=== PATIENT | female | born 1970 | race Hispanic/Latino ===

== ENCOUNTER 2023-12-14 21:36 | Emergency (ER) | payer SELFPAY ==
[2023-12-14] MEDS ORDERED: KETOROLAC 30 MG/ML INJ ONE (21:52)
[2023-12-14] MEDS ORDERED: NA CHLORIDE 0.9% 1,000 ML ONE (21:52)
[2023-12-14] MEDS ORDERED: FAMOTIDINE 20 MG/2 ML VIAL IV ONE (21:52)
[2023-12-14] MEDS ORDERED: ONDANSETRON 4 MG/2 ML VIAL ONE (21:53)
[2023-12-14 21:59] LABS: Absolute Basophils 0.2 K/uL (0-0.5); Absolute Eosinophils 0.1 K/uL (0-0.5); Absolute Lymphocytes (CBC) 2.8 K/uL (0.7-4.9); Absolute Monocytes 0.7 K/uL (0.1-1.3); Absolute Neutrophil 10.3 K/uL (1.8-8.0); Basophils % 1.4 % (0-1.3); Hematocrit 44.8 % (36.0-45.0); Hemoglobin 15.2 g/dL (12.0-15.0); Lymphocytes % 19.7 % (15.3-44.8); MCH 30.9 pg (27.0-35.0); MCV 90.9 fL (80-100); MPV 7.7 fL (7.6-11.3); Monocytes % 5.3 % (3.3-12.3); Neutrophils % 72.6 % (41.7-73.7); Platelets 481 thou/uL (152-406); RBC Red Blood Cell Count 4.93 M/uL (3.86-4.86)
[2023-12-14] MEDS ORDERED: MAGNES/ALUMIN/SIMET 30ML UCUP ONE (22:06)
[2023-12-14] MEDS ORDERED: LIDOCAINE VISCOUS 2% 10ML ORAL SOLN ONE (22:07)
[2023-12-14 22:23] LABS: Anion Gap 10.8 mEq/L (5.0-15.0); Bilirubin Total 0.5 mg/dL (0.2-1.0); Globulin 4.2 g/dL (2.3-3.5); Potassium 3.8 mEq/L (3.5-5.1); Protein, Total 8.2 g/dL (6.4-8.2); Troponin High Sensitivity 4.5 pg/mL (<58.9)
--- NOTE | 2023-12-14 22:43 | RAD REPORT ---
EXAM DESCRIPTION: US - Abdomen Exam Limited - 12/14/2023 10:25 pm CLINICAL HISTORY: ABD PAIN COMPARISON: No comparisons TECHNIQUE: Sonographic grayscale and color flow images of the right upper abdominal quadrant were o btained. FINDINGS: The gallbladder demonstrates no gallstones. No pericholecystic fluid or gallbladder wall t hickening. The common bile duct is normal measuring 1 mm. The liver demonstrates no findings of intrahepatic biliary dilatation. IMPRESSION: Unremarkable examination.
--- NOTE | 2023-12-14 22:50 | EDPHYS ---
Physician Documentation [facility] Name: Antonia Guillen Age: 53 yrs Sex: Female : 1970 Arrival Date: 12/14/2023 Time: 21:36 Bed 6 Private MD: ED Physician Shahzad Ballard HPI: 12/13 21:50 This 53 yrs old Female presents to ER via Ambulatory with complaints of Abdominal Pain, kb Nausea/Vomiting/Diarrhea. 21:50 Pt is a 53 year old female who presents for epigastric pain, nausea and vomiting that kb started yesterday. Denies fever, diarrhea. Historical: - Allergies: 21:46 No Known Allergies; rv - Home Meds: 21:46 Ranitidine Oral [Active]; rv - PMHx: 21:46 gastritis; rv - PSHx: 21:46 None; rv - Immunization history:: Adult Immunizations up to date. - Infectious Disease History:: Denies. - Social history:: Smoking status: Patient denies any tobacco usage or history of. ROS: 21:49 Constitutional: As per HPI kb Exam: 21:49 Constitutional: This is a well developed, well nourished patient who is awake, alert, kb and in no acute distress. Head/Face: Normocephalic, atraumatic. ENT: Moist Mucous membranes Cardiovascular: Regular rate Respiratory: Respirations even and unlabored. No increased work of breathing. Talking in full sentences Skin: Warm, dry with normal turgor. Normal color. MS/ Extremity: Pulses equal, no cyanosis. Neurovascular intact. Full, normal range of motion. Neuro: Awake and alert, GCS 15, oriented to person, place, time, and situation. Moves all extremities. Normal gait. 21:49 Abdomen/GI: Inspection: abdomen appears normal, Bowel sounds: normal, Palpation: soft, in all quadrants, moderate abdominal tenderness, in the epigastric area, 22:17 ECG was reviewed by the Attending Physician. kb Vital Signs: 21:45 BP 156 / 92; Pulse 91; Resp 18; Temp 98; Pulse Ox 99% ; rv 22:46 BP 147 / 84; Pulse 93; Pulse Ox 100% on R/A; Pain 0/10; tm6 22:59 BP 144 / 92; Pulse 82; Resp 20; Temp 97.2; Pulse Ox 100% on R/A; Pain 0/10; tm6 22:46 Pain Scale: Adult tm6 22:59 Pain Scale: Adult tm6 MDM: 21:45 Patient medically screened. kb 21:49 Data reviewed: vital signs, nurses notes. kb 22:48 Differential diagnosis: cholecystitis, Cholelithiasis, gastritis, gastroesophageal kb reflux disease, non-specific abd pain, Peptic Ulcer Disease. Counseling: I had a detailed discussion with the patient and/or guardian regarding the historical points, exam findings, and any diagnostic results supporting the discharge/admit diagnosis, lab results, radiology results, the need for outpatient follow up, a family practitioner, to return to the emergency department if symptoms worsen or persist or if there are any questions or concerns that arise at home. 12/13 21:49 Order name: CBC with Diff; Complete Time: 22:07 kb 12/13 21:49 Order name: CMP; Complete Time: 22:25 kb 12/13 21:49 Order name: Lipase; Complete Time: 22:25 kb 12/13 21:49 Order name: Troponin High Sensitivity; Complete Time: 22:25 kb 24 22:07 Order name: US Abdomen Limited; Complete Time: 22:44 kb 12/13 21:49 Order name: EKG; Complete Time: 21:49 kb 12/13 21:49 Order name: IV Saline Lock; Complete Time: 22:00 kb 12/13 21:49 Order name: Labs collected and sent; Complete Time: 22:00 kb 12/13 21:49 Order name: EKG - Nurse/Tech; Complete Time: 22:03 kb EC:17 Rate is 80 beats/min. Rhythm is regular. QRS [place] is Normal. ND interval is normal at kb 130 msec. QRS interval is normal at 78 msec. QT interval is normal at 438 msec. Administered Medications: 22:01 Drug: NS 0.9% IV 1000 ml IV at 1 bolus Per protocol; 1000 mL bolus Route: IV; Rate: 1 tm6 bolus; Site: right antecubital; 22: Drug: Famotidine IVP 20 mg IVP once; dilute with 10 mL 0.9% NaCl; give over 2 minutes tm6 Route: IVP; Site: right antecubital; 22:01 Drug: TORadol - Ketorolac IVP 15 mg IVP once Route: IVP; Site: right antecubital; tm6 22:01 Drug: Ondansetron IVP 4 mg IVP once; over 2 minutes Route: IVP; Site: right antecubital;tm6 22:11 Drug: GI Cocktail without - (Maalox PO 30 ml, Lidocaine Mucous Membrane 2 % 15 tm6 ml) PO once Route: PO; 23:01 Follow up: Response: Marked relief of symptoms tm6 22:59 Drug: Dicyclomine PO 20 mg PO once Route: PO; tm6 Disposition Summary: 12/14/23 22:49 Discharge Ordered Notes: Location: Home kb Condition: Stable kb Diagnosis - Epigastric pain kb Followup: kb - With: Emergency Department - When: As needed - Reason: Worsening of condition Followup: kb - With: Private Physician - When: 2 - 3 days - Reason: Recheck today's complaints, Continuance of care, Re-evaluation by your physician Discharge Instructions: - Discharge Summary Sheet kb - Abdominal Pain, Adult, [id number] kb Forms: - Medication Reconciliation Form kb - Antibiotic Education kb - Prescription Opioid Use kb - Patient Portal Instructions kb - Leadership Thank You Letter kb Prescriptions: - Zofran 4 mg Oral tablet - take 1 tablet ORAL route every 6 hours As needed; 12 tablet; Refills: 0, kb Product Selection Permitted - dicyclomine 20 mg Oral tablet - take 1 tablet ORAL route 4 times per day As needed; 20 tablet; Refills: 0, kb Product Selection Permitted Signatures: Dispatcher [employer] Uma Ta, SHANIA LOMELI-Angel Weiner RN RN Idris Longoria RN RN tm6 Corrections: (The following items were deleted from the chart) 21:47 21:46 Home Meds: None; rv rv
--- NOTE | 2023-12-14 22:50 | ER ---
Nurse's Notes [facility] Name: Antonia Guillen Age: 53 yrs Sex: Female : 1970 Arrival Date: 12/14/2023 Time: 21:36 Bed 6 Private MD: Diagnosis: Epigastric pain Presentation: 12/13 21:45 Chief complaint: Patient states: epigastric pain, nausea and vomiting for two days. rv denies fever. takes Ranitidine for Gastritis. no other complaints. Coronavirus screen: At this time, the client does not indicate any symptoms associated with coronavirus-19. Ebola Screen: No symptoms or risks identified at this time. Initial Sepsis Screen: Does the patient meet any 2 criteria? No. Patient's initial sepsis screen is negative. Does the patient have a suspected source of infection? No. Patient's initial sepsis screen is negative. Risk Assessment: Do you want to hurt yourself or someone else? Patient reports no desire to harm self or others. Onset of symptoms was December 14, 2023. 21:45 Method Of Arrival: Ambulatory rv 21:45 Acuity: LINO 3 rv Triage Assessment: 21:46 General: Appears uncomfortable, Behavior is calm, cooperative. Pain: Complains of pain rv in abdomen. Neuro: Level of Consciousness is awake, alert, obeys commands, Oriented to person, place, time, situation. Cardiovascular: Capillary refill < 3 seconds Patient's skin is warm and dry. Respiratory: Airway is patent Respiratory effort is even, unlabored. GI: Abdomen is round non-distended. : No signs and/or symptoms were reported regarding the genitourinary system. Derm: Skin is intact. Historical: - Allergies: 21:46 No Known Allergies; rv - Home Meds: 21:46 Ranitidine Oral [Active]; rv - PMHx: 21:46 gastritis; rv - PSHx: 21:46 None; rv - Immunization history:: Adult Immunizations up to date. - Infectious Disease History:: Denies. - Social history:: Smoking status: Patient denies any tobacco usage or history of. Screenin:48 [facility] ED Fall Risk Assessment (Adult) History of falling in the last 3 months, rv including since admission No falls in past 3 months (0 pts) Score/Fall Risk Level 0 - 2 = Low Risk Oriented to surroundings, Maintained a safe environment, Educated pt \T\ family on fall prevention, incl call for assistance when getting out of bed, Assessed \T\ reinforced patient's understanding of fall precautions. Abuse screen: Denies threats or abuse. Denies injuries from another. Nutritional screening: No deficits noted. Tuberculosis screening: No symptoms or risk factors identified. Assessment: 22:11 General: Appears distressed, uncomfortable, Behavior is calm, cooperative. Pain: tm6 Complains of pain in epigastric area Pain does not radiate. Pain currently is 10 out of 10 on a pain scale. Also complains of nausea. Neuro: Level of Consciousness is awake, alert, obeys commands, Oriented to person, place, time, situation. Cardiovascular: Patient's skin is warm and dry. Respiratory: Airway is patent Respiratory effort is even, unlabored, Respiratory pattern is regular, symmetrical. GI: Bowel sounds present X 4 quads. Abd is soft Abdomen is tender to palpation in epigastric area Reports upper abdominal pain, diarrhea, nausea, Pain is 10 out of 10 on a pain scale. vomiting. GI: Abdomen is flat, non-distended. : No signs and/or symptoms were reported regarding the genitourinary system. EENT: No signs and/or symptoms were reported regarding the EENT system. Derm: No signs and/or symptoms reported regarding the dermatologic system. Musculoskeletal: No signs and/or symptoms reported regarding the musculoskeletal system. 22:46 Reassessment: Patient and/or family updated on plan of care and expected duration. Pain tm6 level reassessed. Patient is alert, oriented x 3, equal unlabored respirations, skin warm/dry/pink. Patient states feeling better. Patient states symptoms have improved. 23:00 Reassessment: Patient appears in no apparent distress at this time. Patient and/or tm6 family updated on plan of care and expected duration. Pain level reassessed. Patient is alert, oriented x 3, equal unlabored respirations, skin warm/dry/pink. Patient states feeling better. Vital Signs: 21:45 BP 156 / 92; Pulse 91; Resp 18; Temp 98; Pulse Ox 99% ; rv 22:46 BP 147 / 84; Pulse 93; Pulse Ox 100% on R/A; Pain 0/10; tm6 22:59 BP 144 / 92; Pulse 82; Resp 20; Temp 97.2; Pulse Ox 100% on R/A; Pain 0/10; tm6 22:46 Pain Scale: Adult tm6 22:59 Pain Scale: Adult tm6 ED Course: 21:40 Patient arrived in ED. jj6 21:45 [facility] Lucero [facility]C [facility] kb 21:45 Shahzad Ballard MD is Attending Physician. kb 21:46 Triage completed. rv 21:46 Arm band placed on right wrist. rv 21:48 Patient has correct armband on for positive identification. Client placed on continuous rv cardiac and pulse oximetry monitoring. NIBP monitoring applied. 21:48 No provider procedures requiring assistance completed. rv 21:49 Idris Chun, RN is Primary Nurse. tm6 22:00 Troponin High Sensitivity Sent. as6 22:00 CBC with Diff Sent. as6 22:00 CMP Sent. as6 22:00 Lipase Sent. as6 22:00 Inserted saline lock: 20 gauge in right antecubital area, using aseptic technique. as6 Blood collected. 22:11 Provided Education on: use of call de la garza. classroom monitor on. Pulse ox on. NIBP on. Door tm6 closed. Noise minimized. Lights dimmed. Warm blanket given. 22:11 EKG done, by ED staff, reviewed by Uma JAUREGUI. tm6 22:27 US Abdomen Limited In Process Unspecified. EDMS 23:00 IV discontinued, intact, bleeding controlled, No redness/swelling at site. Pressure tm6 dressing applied. Administered Medications: 22:01 Drug: NS 0.9% IV 1000 ml IV at 1 bolus Per protocol; 1000 mL bolus Route: IV; Rate: 1 tm6 bolus; Site: right antecubital; 22:01 Drug: Famotidine IVP 20 mg IVP once; dilute with 10 mL 0.9% NaCl; give over 2 minutes tm6 Route: IVP; Site: right antecubital; 22:01 Drug: TORadol - Ketorolac IVP 15 mg IVP once Route: IVP; Site: right antecubital; tm6 22:01 Drug: Ondansetron IVP 4 mg IVP once; over 2 minutes Route: IVP; Site: right antecubital;tm6 22:11 Drug: GI Cocktail without - (Maalox PO 30 ml, Lidocaine Mucous Membrane 2 % 15 tm6 ml) PO once Route: PO; 23:01 Follow up: Response: Marked relief of symptoms tm6 22:59 Drug: Dicyclomine PO 20 mg PO once Route: PO; tm6 Medication: 21:48 VIS not applicable for this client. rv Outcome: 22:49 Discharge ordered by . reynaldo 23:00 Discharged to home ambulatory, with family, tm6 23:00 Condition: stable 23:00 Discharge instructions given to patient, family, Instructed on discharge instructions, follow up and referral plans. medication usage, Demonstrated understanding of instructions, follow-up care, medications, Prescriptions given X 2, 23:00 Patient left the ED. tm6 Signatures: Dispatcher [employer] EDMS Uma Lucero, INSTRUCTIONAL TECHNOLOGIST-C INSTRUCTIONAL TECHNOLOGIST-Angel Weiner, RN RN rv Laura Riley Ashby, RN RN as6 Idris Chun RN RN tm6 Corrections: (The following items were deleted from the chart) 21:47 21:46 Home Meds: None; rv rv
[2023-12-14] MEDS ORDERED: DICYCLOMINE HCL 10 MG CAP ONE (22:54)
[2023-12-14 23:11] VITALS: BP 144/92; TEMP 97.2; O2SAT 100
== END 2023-12-14 23:00 | disposition home or self-care (01) ==
LOC: ER 21:36
DX: R10.13 Epigastric pain (principal)
CPT/HCPCS: 36415; 76705; 80053; 83690; 84484; 85025; 93005; J2405; J7030

== ENCOUNTER 2023-12-17 00:01 | Emergency (ER) | payer OTHER, SELFPAY ==
[2023-12-17 00:34] LABS: Absolute Basophils 0.2 K/uL (0-0.5); Absolute Eosinophils 0.2 K/uL (0-0.5); Absolute Lymphocytes (CBC) 2.6 K/uL (0.7-4.9); Absolute Monocytes 0.7 K/uL (0.1-1.3); Absolute Neutrophil 9.2 K/uL (1.8-8.0); Basophils % 1.3 % (0-1.3); Eosinophils % 1.7 % (0-4.4); Hematocrit 39.7 % (36.0-45.0); Hemoglobin 13.4 g/dL (12.0-15.0); Lymphocytes % 19.9 % (15.3-44.8); MCH 30.6 pg (27.0-35.0); MCHC 33.8 g/dL (32.0-36.0); MCV 90.7 fL (80-100); MPV 7.1 fL (7.6-11.3); Monocytes % 5.4 % (3.3-12.3); Neutrophils % 71.7 % (41.7-73.7); Nucleated Red Blood Cells % 0.1 % (0-0); Platelets 419 thou/uL (152-406); RBC Red Blood Cell Count 4.38 M/uL (3.86-4.86); Red Cell Distribution Width 13.7 % (12.1-15.2)
[2023-12-17 00:54] LABS: Albumin 3.6 g/dL (3.4-5.0); Anion Gap 10.7 mEq/L (5.0-15.0); Bilirubin Total 0.4 mg/dL (0.2-1.0); Globulin 3.6 g/dL (2.3-3.5); Potassium 3.7 mEq/L (3.5-5.1); Protein, Total 7.2 g/dL (6.4-8.2); Troponin High Sensitivity 4.8 pg/mL (<58.9)
[2023-12-17] MEDS ORDERED: NA CHLORIDE 0.9% 1,000 ML ONE (01:15)
[2023-12-17] MEDS ORDERED: ONDANSETRON 4 MG/2 ML VIAL ONE (01:15)
[2023-12-17] MEDS ORDERED: FAMOTIDINE 20 MG/2 ML VIAL IV ONE (01:15)
[2023-12-17] MEDS ORDERED: MORPHINE 4 MG/ML SYR ONE (01:15)
[2023-12-17 03:10] LABS: Specific Gravity 1.022 (1.005-1.030); Urine Bacteria <20 /HPF (<20); Urine Bilirubin NEGATIVE (Negative); Urine Blood 2+ (Negative); Urine Clarity Turbid (Clear); Urine Color Colorless (Yellow); Urine Culture Reflex Order NOT NEEDED; Urine Glucose NEGATIVE (Negative); Urine Ketones NEGATIVE (Negative); Urine Microscopic Reflex YN ORDER UMIC; Urine Nitrite NEGATIVE (Negative); Urine Protein NEGATIVE (Negative); Urine RBC <5 /HPF (None Seen); Urine Urobilinogen Normal (Normal); Urine WBC <5 /HPF (<5)
[2023-12-17 03:12] LABS: Specific Gravity 1.022 (1.005-1.030)
--- NOTE | 2023-12-17 03:12 | ER ---
Nurse's Notes [facility] Name: Antonia Guillen Age: 53 yrs Sex: Female : 1970 Arrival Date: 12/17/2023 Time: 00:01 Bed 5 Private MD: Diagnosis: Epigastric pain;Nausea Presentation: 12/16 00:12 Chief complaint: Patient states: Epigastric abdominal pain onset 1 week ago. Pt states cm10 that her pain got worse tonight. Pt also reports 4 episodes of vomiting. Pt was seen here a few days ago for the same issues. Coronavirus screen: Client indicates they have traveled out of the [place] in the last 14 days. At this time, the client does not indicate any symptoms associated with coronavirus-19. Ebola Screen: Patient denies travel to an Ebola-affected area in the 21 days before illness onset. No symptoms or risks identified at this time. Initial Sepsis Screen: Does the patient meet any 2 criteria? No. Patient's initial sepsis screen is negative. Does the patient have a suspected source of infection? No. Patient's initial sepsis screen is negative. Risk Assessment: Do you want to hurt yourself or someone else? Patient reports no desire to harm self or others. Onset of symptoms was December 17, 2023. 00:12 Method Of Arrival: Ambulatory cm10 00:12 Acuity: LINO 3 cm10 Triage Assessment: 00:14 General: Appears uncomfortable, Behavior is cooperative. Pain: Complains of pain in cm10 epigastric area Pain does not radiate. Pain currently is 10 out of 10 on a pain scale. Neuro: No deficits noted. Level of Consciousness is awake, alert, obeys commands, Oriented to person, place, time, situation. Respiratory: No deficits noted. Airway is patent Respiratory effort is even, unlabored, Respiratory pattern is regular, symmetrical. GI: Reports upper abdominal pain, nausea, vomiting. Derm: No deficits noted. Skin is intact, Skin is pink, warm \T\ dry. Musculoskeletal: No deficits noted. Range of motion: intact in all extremities. Historical: - Allergies: 00:13 No Known Allergies; cm10 - PMHx: 00:13 gastritis; Hypertensive disorder; cm10 - Immunization history:: Adult Immunizations up to date. - Infectious Disease History:: Denies. - Social history:: Smoking status: Patient reports the use of cigarette tobacco products, smokes one-half pack cigarettes per day. Screenin:36 [facility] ED Fall Risk Assessment (Adult) History of falling in the last 3 months, jb4 including since admission No falls in past 3 months (0 pts) Confusion or Disorientation No (0 pts) Intoxicated or Sedated No (0 pts) Impaired Gait No (0 pts) Mobility Assist Device Used No (0 pt) Altered Elimination No (0 pt) Score/Fall Risk Level 0 - 2 = Low Risk Oriented to surroundings, Maintained a safe environment. Abuse screen: Denies threats or abuse. Nutritional screening: No deficits noted. Tuberculosis screening: No symptoms or risk factors identified. Assessment: 01:35 General: Appears in no apparent distress. uncomfortable, Behavior is calm, cooperative, jb4 appropriate for age. Pain: Complains of pain in epigastric area Pain does not radiate. Pain currently is 7 out of 10 on a pain scale. Neuro: Level of Consciousness is awake, alert, obeys commands, Oriented to person, place, time, situation. Cardiovascular: Patient's skin is warm and dry. Respiratory: Airway is patent Respiratory effort is even, unlabored, Respiratory pattern is regular, symmetrical. GI: Abdomen is flat, non-distended, Reports nausea. : No signs and/or symptoms were reported regarding the genitourinary system. EENT: No signs and/or symptoms were reported regarding the EENT system. Derm: Skin is intact, Skin is pink, warm \T\ dry. Musculoskeletal: Circulation, motion, and sensation intact. Range of motion: intact in all extremities. 03:18 GI: Bowel sounds present X 4 quads. Abd is soft and non tender X 4 quads. rv Vital Signs: 00:12 BP 157 / 89; Pulse 82; Resp 18; Temp 99(O); Pulse Ox 98% on R/A; Weight 49.9 kg (R); cm10 Pain 1010; 00:35 BP 155 / 88 LA Supine (auto/lg); Pulse 75 MON; Resp 15 S; Temp 98.8(O); Pulse Ox 100% ty on R/A; Weight 61.23 kg (M); Height 5 ft. 4 in. (R); Pain 710; 01:00 BP 167 / 87; Pulse 73; Resp 16; Pulse Ox 99% on R/A; jb4 03:17 BP 153 / 66; Pulse 68; Resp 17; Temp 98; Pulse Ox 99% on R/A; rv 00:35 Body Mass Index 23.17 (61.23 kg, 162.56 cm) ty 00:12 Pain Scale: Adult cm10 00:35 Pain Scale: Adult ty ED Course: 12/15 23:00 Initial lab(s) drawn, by me, sent to lab. Inserted saline lock: 20 gauge in right rv antecubital area, using aseptic technique. Blood collected. 12/16 00:05 Patient arrived in ED. gm2 00:07 Shahzad Ballard MD is Attending Physician. tiffanie 00:10 Shahzad Johnson PA is PHCP. cp 00:13 Triage completed. cm10 00:14 Radiology exam delayed due to IV insertion attempt and/or patient not having eh4 appropriate IV at this time. 00:15 Arm band placed on Patient placed in an exam room, on a stretcher. cm10 00:16 Angel Means, PHAN is Primary Nurse. rv 01:36 Patient has correct armband on for positive identification. Bed in low position. Call jb4 light in reach. Side rails up X 1. Provided Education on: plan of care.. 01:53 CT Abd/Pelvis - IV Contrast Only In Process Unspecified. EDMS 03:11 Lenin Evans MD is Referral Physician. cp 03:18 No provider procedures requiring assistance completed. IV discontinued, intact, rv bleeding controlled, No redness/swelling at site. Pressure dressing applied. Administered Medications: 01:33 Drug: NS 0.9% IV 1000 ml IV at 1 bolus Per protocol; 1000 mL bolus Route: IV; Rate: 1 jb4 bolus; Site: right antecubital; 03:19 Follow up: IV Status: Completed infusion; IV Intake: 1000ml rv 01:33 Drug: Famotidine IVP 20 mg IVP once; dilute with 10 mL 0.9% NaCl; give over 2 minutes jb4 Route: IVP; Site: right antecubital; 03:19 Follow up: Response: No adverse reaction; Marked relief of symptoms rv 01:33 Drug: Ondansetron IVP 4 mg IVP once; over 2 minutes Route: IVP; Site: right antecubital;jb4 03:19 Follow up: Response: No adverse reaction; Marked relief of symptoms rv 01:33 Drug: morphine IVP or IV 4 mg IVP once over 4 mins Route: IVP; Infused Over: 4 mins; jb4 Site: right antecubital; 03:19 Follow up: Response: No adverse reaction; Marked relief of symptoms rv 03:17 Not Given (Patient Refused): GI Cocktail without - (maaloxsuspension 30 ml, rv lidocaine mucous membrane liquid 2 % 15 ml) PO once Medication: 03:18 VIS not applicable for this client. rv Intake: 03:19 IV: 1000ml; Total: 1000ml. rv Outcome: 03:12 Discharge ordered by MD. cp 03:18 Discharged to home ambulatory, with family, rv 03:18 Condition: improved 03:18 Discharge instructions given to patient, Instructed on discharge instructions, follow up and referral plans. medication usage, Demonstrated understanding of instructions, follow-up care, medications, Prescriptions given X 2, 03:19 Patient left the ED. rv Signatures: Dispatcher [employer] EDMS Shahzad Ballard MD MD cha Page, Corey, PA PA Trevor Lopez, RN RN jb4 Angel Means RN RN rv Pratibha Gamboa Dipti Goel RN RN cm10 Magdalene Tavarez 2 Al Vides
--- NOTE | 2023-12-17 03:12 | EDPHYS ---
Physician Documentation [facility] Name: Antonia Guillen Age: 53 yrs Sex: Female : 1970 Arrival Date: 12/17/2023 Time: 00:01 Bed 5 Private MD: ED Physician Shahzad Ballard HPI: 12/16 00:23 This 53 yrs old Female presents to ER via Ambulatory with complaints of cp Abdominal Pain, Nausea. 00:23 The patient presents with abdominal pain in the epigastric area. cp 00:23 Onset: The symptoms/episode began/occurred last night. Associated signs and symptoms: cp Pertinent positives: chest pain, nausea, Pertinent negatives: constipation, diarrhea, fever, vomiting. The symptoms are described as constant. Severity of pain: in the emergency department the pain is unchanged despite home interventions. Historical: - Allergies: 00:13 No Known Allergies; cm10 - PMHx: 00:13 gastritis; Hypertensive disorder; cm10 - Immunization history:: Adult Immunizations up to date. - Infectious Disease History:: Denies. - Social history:: Smoking status: Patient reports the use of cigarette tobacco products, smokes one-half pack cigarettes per day. ROS: 00:25 Constitutional: Negative for body aches, chills, fever, poor PO intake, cp 00:25 Eyes: Negative for injury, pain, redness, and discharge, cp 00:25 ENT: Negative for drainage from ear(s), ear pain, sore throat, difficulty swallowing, difficulty handling secretions, 00:25 Cardiovascular: Negative for chest pain, edema, palpitations, 00:25 Respiratory: Negative for cough, shortness of breath, wheezing, 00:25 Abdomen/GI: Positive for abdominal pain, nausea, Negative for vomiting, diarrhea, constipation, 00:25 Back: Negative for radiated pain, 00:25 Neuro: Negative for altered mental status, dizziness, headache, syncope, weakness, 00:25 All other systems are negative, Exam: 00:30 Constitutional: The patient appears in no acute distress, alert, awake, cp non-diaphoretic, non-toxic, well developed, well nourished, uncomfortable, 00:30 Head/Face: Normocephalic, atraumatic. cp 00:30 Eyes: Periorbital structures: appear normal, Conjunctiva: normal, no exudate, no injection, Sclera: no appreciated abnormality, Lids and lashes: appear normal, bilaterally, 00:30 ENT: External ear(s): are unremarkable, Nose: is normal, Mouth: Lips: moist, Oral mucosa: pink and intact, moist, Posterior pharynx: Airway: no evidence of obstruction, patent, 00:30 Neck: ROM/movement: is normal, is supple, without pain, no range of motions limitations, 00:30 Chest/axilla: Inspection: normal, 00:30 Cardiovascular: Rate: normal, Rhythm: regular, Edema: is not appreciated, JVD: is not appreciated, 00:30 Respiratory: the patient does not display signs of respiratory distress, Respirations: normal, no use of accessory muscles, no retractions, labored breathing, is not present, Breath sounds: are clear throughout, no decreased breath sounds, no stridor, no wheezing, 00:30 Abdomen/GI: Inspection: abdomen appears normal, Bowel sounds: active, all quadrants, Palpation: soft, in all quadrants, moderate abdominal tenderness, in the epigastric area, rebound tenderness, is not appreciated, involuntary guarding, is not appreciated, 00:30 Back: CVA tenderness, is absent, 00:33 ECG was reviewed by the Attending Physician. cp Vital Signs: 00:12 BP 157 / 89; Pulse 82; Resp 18; Temp 99(O); Pulse Ox 98% on R/A; Weight 49.9 kg (R); cm10 Pain 10/10; 00:35 BP 155 / 88 LA Supine (auto/lg); Pulse 75 MON; Resp 15 S; Temp 98.8(O); Pulse Ox 100% ty on R/A; Weight 61.23 kg (M); Height 5 ft. 4 in. (R); Pain 7/10; 01:00 BP 167 / 87; Pulse 73; Resp 16; Pulse Ox 99% on R/A; jb4 03:17 BP 153 / 66; Pulse 68; Resp 17; Temp 98; Pulse Ox 99% on R/A; rv 00:35 Body Mass Index 23.17 (61.23 kg, 162.56 cm) ty 00:12 Pain Scale: Adult cm10 00:35 Pain Scale: Adult ty MDM: 00:07 Patient medically screened. [email or web address] 01:00 Differential diagnosis: appendicitis, cholecystitis, Cholelithiasis, gastritis, GI cp Bleed, pancreatitis, Pyelonephritis, Ureterolithiasis, urinary tract infection. 03:11 Data reviewed: vital signs, nurses notes, lab test result(s), radiologic studies, CT cp scan. 03:11 I considered the following discharge prescriptions or medication management in the emergency department Medications were administered in the Emergency Department. See MAR. Care significantly affected by the following chronic conditions: Hypertension. Counseling: I had a detailed discussion with the patient and/or guardian regarding the historical points, exam findings, and any diagnostic results supporting the discharge/admit diagnosis, lab results, radiology results, to return to the emergency department if symptoms worsen or persist or if there are any questions or concerns that arise at home. Response to treatment: the patient's symptoms have resolved after treatment, the patient's pain is gone, and as a result, I will discharge patient. Special discussion: Based on the patient's Hx, exam, and Dx evaluation, there is no indication for emergent surgery or inpatient Tx. It is understood by the patient/guardian that if the Sx's persist or worsen they need to return immediately for re-evaluation. 12/16 00:07 Order name: CBC with Diff; Complete Time: 01:54 [facility] 12/16 01:54 Interpretation: Normal except: WBC 12.80; PLT 419; MPV 7.1; NEUT A 9.2. 12/16 00:07 Order name: CMP; Complete Time: 01:54 [facility] 12/16 01:54 Interpretation: Normal except: GLUC 118; GFR 87; AST 11; GLOB 3.6; A/G 1.0. 12/16 00:07 Order name: Lipase; Complete Time: 01:54 [facility] 12/16 00:07 Order name: Test, Urine; Complete Time: 03:13 [facility] 12/16 00:07 Order name: Urinalysis w/ reflexes; Complete Time: 03:13 [facility] 12/16 03:13 Interpretation: Normal except: [facility] Turbid; UBLD 2+. 12/16 00:32 Order name: Troponin High Sensitivity; Complete Time: 01:54 EDMS 12/16 01:54 Interpretation: Reviewed. 12/16 00:07 Order name: CT Abd/Pelvis - IV Contrast Only [facility] 12/16 00:10 Order name: EKG; Complete Time: 00:11 [facility] 12/16 00:07 Order name: IV Saline Lock; Complete Time: :12 [facility] 12/16 00:07 Order name: Labs collected and sent; Complete Time: : [facility] 12/16 00:10 Order name: EKG - Nurse/Tech; Complete Time: : [facility] 12/16 02:53 Order name: PO challenge; Complete Time: 02:57 cp EC:33 Rate is 76 beats/min. Rhythm is regular. MO interval is normal. QRS interval is normal. cp QT interval is normal. T waves are Inverted in lead aVR. Interpreted by me. Reviewed by me. Administered Medications: 01:33 Drug: NS 0.9% IV 1000 ml IV at 1 bolus Per protocol; 1000 mL bolus Route: IV; Rate: 1 jb4 bolus; Site: right antecubital; 03:19 Follow up: IV Status: Completed infusion; IV Intake: 1000ml rv 01:33 Drug: Famotidine IVP 20 mg IVP once; dilute with 10 mL 0.9% NaCl; give over 2 minutes jb4 Route: IVP; Site: right antecubital; 03:19 Follow up: Response: No adverse reaction; Marked relief of symptoms rv 01:33 Drug: Ondansetron IVP 4 mg IVP once; over 2 minutes Route: IVP; Site: right antecubital;jb4 03:19 Follow up: Response: No adverse reaction; Marked relief of symptoms rv 01:33 Drug: morphine IVP or IV 4 mg IVP once over 4 mins Route: IVP; Infused Over: 4 mins; jb4 Site: right antecubital; 03:19 Follow up: Response: No adverse reaction; Marked relief of symptoms rv 03:17 Not Given (Patient Refused): GI Cocktail without - (maaloxsuspension 30 ml, rv lidocaine mucous membrane liquid 2 % 15 ml) PO once Disposition Summary: 12/17/23 03:12 Discharge Ordered Notes: Location: Home cp Problem: new cp Symptoms: have improved cp Condition: Stable cp Diagnosis - Epigastric pain cp - Nausea cp Followup: cp - With: Lenin Evans MD - When: 2 - 3 days - Reason: Recheck today's complaints Discharge Instructions: - Discharge Summary Sheet cp - Abdominal Pain, Adult cp - Nausea, Adult cp Forms: - Medication Reconciliation Form cp - Antibiotic Education cp - Prescription Opioid Use cp - Patient Portal Instructions cp - Leadership Thank You Letter cp Prescriptions: - Protonix 40 mg Oral Tablet - take 1 tablet ORAL route once daily; 30 tablet; Refills: 0, Product Selection cp Permitted - Zofran 4 mg Oral Tablet - take 1 tablet ORAL route every 12 hours As needed; 20 tablet; Refills: 0, cp Product Selection Permitted Addendum: 12/20/2023 22:00 Co-signature as Attending Physician, Shahzad Ballard MD I agree with the assessment and c ovalles plan of care. Signatures: Dispatcher [employer] EDMS Shahzad Ballard MD MD cha Page, Corey, PA PA cp Trevor Jaimes, RN RN jb4 Dipti Jimenez RN RN cm10 Angel Means RN rv Corrections: (The following items were deleted from the chart) 12/16 00:08 00:08 Abdomen Pelvis W Con+CT.RAD.BRZ ordered. EDMS EDMS 00:33 00:11 Troponin High Sensitivity+C.LAB.BRZ ordered. EDMS EDMS
[2023-12-17 03:44] VITALS: BP 153/66; TEMP 98; O2SAT 99
--- NOTE | 2023-12-18 14:13 | RAD REPORT ---
EXAM DESCRIPTION: Abdomen Pelvis W Contrast RadLex: CT ABDOMEN PELVIS WITH IV CONTRAST CLINICAL HISTORY: 53 years Female; EPIGASTRIC PAIN, VOMITING; IV ONLY TECHNIQUE: CT of the abdomen and pelvis with intravenous contrast. All CT scans at this facility use dose modulation, iterative reconstruction, and/or weight based dosi ng when appropriate to reduce radiation dose to as low as reasonably achievable. COMPARISON: None. FINDINGS: Lower thorax: Lung bases are clear Abdomen: Stomach: Within normal limits Liver: No focal lesions. Hepatic steatosis. No intrahepatic ductal distention. Gallbladder: Nondistended Pancreas: Within normal limits Spleen: Within normal limits Right kidney: No hydronephrosis. No focal lesion. Left kidney: No hydronephrosis. No focal lesion. Adrenal glands: Within normal limits Vascular structures: Within normal limits Nodes: No lymphadenopathy by size criteria Pelvis: Small bowel: No significant distention. Appendix: Within normal limits Colon: No distention or acute pericolonic edema. Peritoneum: No free intraperitoneal fluid or air. Bones: No acute bone findings. Bladder: Unremarkable. Moderately distended. Reproductive organs: No acute findings. IMPRESSION: 1. No acute abdominopelvic findings. 2. Hepatic steatosis. Electronically signed by: Rodríguez Lord MD 12/17/2023 02:32 AM CDT Due to temporary technical issues with the PACS/Fluency reporting system, reports are being signed by the in house radiologists without review as a courtesy to insure prompt reporting. The interpreting radiologist is fully responsible for the content of the report.
--- NOTE | 2023-12-19 13:02 | EKG ---
Test Date: 2023-12-17 Test Time: 00:27:04 Powerbuilder: SHANE MEASUREMENT RESULTS: Intervals: Rate: 76 NM: 120 QRSD: 66 QT: 366 QTc: 411 Kimberly: P: 59 NM: 120 QRS: 70 T: 73 INTERPRETIVE STATEMENTS: Normal sinus rhythm Normal ECG Compared to ECG 12/14/2023 22:01:54 No significant changes Electronically Signed On 12-19-23 12:56:03 CDT by Tulio Bhatti
== END 2023-12-17 03:19 | disposition home or self-care (01) ==
LOC: ER 00:01
DX: R10.13 Epigastric pain (principal); R11.0 Nausea; F17.210 Nicotine dependence, cigarettes, uncomplicated
CPT/HCPCS: 93005; 85025; 81001; 36415; 81025; 84484; 83690; 80053; 74177; Q9967; J2405; J7030